=== PATIENT | female | born 1945 | race Caucasian/White ===

== ENCOUNTER 2016-12-12 16:25 | Outpatient (CLI) | payer MEDICARE, OTHER ==
[2016-03-16 14:57] VITALS: BP 152/85
[2016-12-12 16:59] LABS: eGFR (African) > 60; eGFR (Non-African) > 60
== END 2016-12-12 16:26 ==
LOC: LAB 16:25
PROVIDERS: ATTEND Family Medicine
DX: E03.9 Hypothyroidism, unspecified (principal); I10 Essential (primary) hypertension
CPT/HCPCS: 36415; 80048; 84439; 84443

== ENCOUNTER 2018-07-27 13:25 | Outpatient (CLI) | payer MEDICARE, OTHER ==
[2016-03-16 14:57] VITALS: BP 152/85
--- NOTE | 2018-07-27 15:02 | Diagnostic Imaging Report ---
STAN HYDE [facility] [id number] [facility].[address] [id number] Report Submission Date: Jul 27, 2018 2:51:10 PM CDT Patient Study Name: RHIANNON HARMON Date: Jul 27, 2018 1:33:12 PM CDT Modality Type: DX Gender: F Description: LOWER EXTREMITY : 47 Institution: [facility] Physician: STAN HYDE Left knee History: Knee pain AP, lateral and sunrise views of the left knee demonstrate severe narrowing of medial compartment joint space consistent with osteoarthritis with nearly a [id number] appearance. Lateral and patellofemoral compartment joint space is maintained. Impression: Osteoarthritis of the left knee with severe narrowing of medial compartment joint space. Electronically signed on Jul 27, 2018 2:51:10 PM CDT by: Blanca SEBASTIAN
== END 2018-07-27 13:26 ==
LOC: RAD 13:25
PROVIDERS: ATTEND Family Medicine Sports Medicine
DX: M25.569 Pain in unspecified knee (principal)
CPT/HCPCS: 73562

== ENCOUNTER 2019-08-08 11:22 | Day surgery (SDC) | payer MEDICARE, OTHER ==
[2016-03-16 14:57] VITALS: BP 152/85
[~2019-08-08 11:22] MED LIST: LACTATED RINGERS 1,000 ML IV.SOLN IV ONE; LIDOCAINE HCL 2% PF 100MG/5ML VIAL IJ ONE; PROPOFOL 200 MG/20 ML VIAL IV ONE
--- NOTE | 2019-08-22 17:10 | GI Report ---
DATE OF PROCEDURE: 08/08/2019 REFERRING PHYSICIAN: Dr. Rios. PROCEDURE PERFORMED: Colonoscopy with polypectomy. SURGEON: Ashley Torres M.D., F.A.CDukeP. INDICATION FOR PROCEDURE: 74-year-old woman. She has never had a previous colonoscopy. She did undergo a Cologuard test and it was positive. She denies known family history of colon cancer. Of note, the patient has been a cigarette smoker for 52 years. She also has significant central obesity. She is 53 and weighs 250 lbs. PROCEDURE MEDICATION: Propofol, as per Anesthesia. DESCRIPTION OF PROCEDURE: The Olympus video colonoscope was advanced through the rectum. There was a very atonic, redundant colon. It took some maneuvering to finally reach the cecum. In the ascending colon the patient had 2 polyps. One was about 3-4 mm in size, removed with a cold snare. The second in the mid ascending colon was about a centimeter long by 4 mm wide over a fold which we took off in about 6 pieces, piecemeal, with electrocautery. We did tattoo the site. We appeared to have removed most of the obvious polyp. In the rectum there was another sessile polyp we removed in 2 pieces, about 6-8 mm size. Descending colon and sigmoid: A lot of redundancy. No obvious intraluminal lesions noted. The patient tolerated the procedure well, though we did have to watch her respiration. FINDINGS: Three polyps removed 2 in the ascending; one was large and was 6 pieces, piecemeal removed which we tattooed, and 1 in the rectum we took off in 2 pieces. RECOMMENDATIONS: 1. Pending the pathology of the polyps she probably needs this relooked at again within 3 years. 2. Recommended strongly she needs to stop tobacco usage. 3. Also encouraged a 15-20 lbs weight loss which would be markedly beneficial. ASHLEY TORRES M.D., F.A.C.P. SHANDA/orion R: 08/09/19 Job#: [id number] Cc: Dr. Blanca SEBASTIAN
== END 2019-08-08 14:25 | disposition home or self-care (01) ==
LOC: OPSURG 11:22
PROVIDERS: ATTEND Internal Medicine Gastroenterology
DX: R19.5 Other fecal abnormalities (principal); K63.5 Polyp of colon; K62.1 Rectal polyp; K63.89 Other specified diseases of intestine
CPT/HCPCS: 88305; J2001; J2704; J7120; 45381; 45385; 45388